=== PATIENT | female | born 1945 | race African-American/Black ===

== ENCOUNTER 2018-02-25 08:51 | Emergency (ER) | payer MEDICARE ==
[~2018-02-25] VITALS: Ht 165.1 cm; Wt 104.3 kg
[2018-02-25] MEDS ORDERED: LIDOCAINE 1%-EPI 1:100,000 20 ML VIAL ONE (08:59)
[2018-02-25] MEDS ORDERED: LIDOCAINE 1%-EPI 1:100,000 50 ML VIAL IJ ONE (09:00)
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
--- NOTE | 2018-02-25 09:15 | NUR ---
MD AT BEDSIDE FOR AMY TO HEAD LACERATION.
--- NOTE | 2018-02-25 09:16 | NUR ---
PATIENT TO CT VIA STRETCHER.
--- NOTE | 2018-02-25 09:22 | NUR ---
PATIENT RETURNED FROM CT IN STABLE CONDITION.
--- NOTE | 2018-02-25 10:10 | NUR ---
Patient discharged to home in stable condition. Written and verbal after care instructions given. MD informed patient to follow up with primary MD regarding high blood pressure. Patient verbalizes understanding of instruction.
[2018-02-25 10:11] VITALS: BP 181/102
== END 2018-02-25 10:12 | disposition home or self-care (01) ==
LOC: ER 08:52
DX: S01.01XA Laceration without foreign body of scalp, initial encounter (principal); I10 Essential (primary) hypertension; V49.49XA Driver injured in collision with other motor vehicles in traffic accident, initial encounter; Y93.89 Activity, other specified; Y92.413 State road as the place of occurrence of the external cause; Y99.8 Other external cause status
CPT/HCPCS: 70450-TC; A4606; A6403; J3490; Z7610